=== PATIENT | female | born 1960 | race Caucasian/White ===

== ENCOUNTER 2017-08-25 05:35 | Inpatient (IN) | payer BC ==
[2017-08-25] MEDS ORDERED: ceFAZolin SODIUM 2 GM in DEXTROSE 5 % IN WATER 50 ML IV ONE ×2 (06:00)
[2017-08-25] MEDS ORDERED: TRANEXAMIC ACID 1,000 MG in NORMAL SALINE 100 ML IV ONE (06:00)
[2017-08-25] MEDS ORDERED: RINGER'S SOLUTION,LACTATED 1,000 ML IV PRN (06:00)
[2017-08-25] MEDS ORDERED: ceFAZolin SODIUM 1 GM VIAL IV PRN (06:00)
[2017-08-25] MEDS ORDERED: MORPHINE SULFATE 15 MG TABLET.SA PO PRN (06:00)
[2017-08-25] MEDS ORDERED: ROPIVACAINE HCL/PF 100 MG, KETOROLAC TROMETHAMINE 30 MG, EPINEPHrine 0.2 MG in NORMAL S... IJ PRN (06:00)
[2017-08-25] MEDS ORDERED: TRANEXAMIC ACID 1,000 MG in NORMAL SALINE 100 ML IV PRN (06:00)
[2017-08-25] MEDS ORDERED: MORPHINE SULFATE 15 MG TABLET.SA PO SCH (06:00)
[2017-08-25] MEDS ORDERED: RINGER'S SOLUTION,LACTATED 1,000 ML IV ONE ×3 (07:45→09:40)
[2017-08-25] MEDS ORDERED: FLU VACC QS2017-18(6MOS UP)/PF 60 MCG/0.5 ML SYRINGE IM ONE (09:00)
[2017-08-25] MEDS ORDERED: ZOLPIDEM TARTRATE 5 MG TABLET PO PRN (09:56)
[2017-08-25] MEDS ORDERED: DEXTROSE 5%-LACTATED RINGERS 1,000 ML IV PRN (09:56)
[2017-08-25] MEDS ORDERED: ONDANSETRON HCL/PF 2 MG/ML VIAL IV PRN (09:56)
[2017-08-25] MEDS ORDERED: HYDROmorphone HCL 2 MG/ML VIAL IV PRN (09:56)
[2017-08-25] MEDS ORDERED: MAGNESIUM HYDROXIDE 30 ML UDC PO PRN (09:56)
[2017-08-25] MEDS ORDERED: diphenhydrAMINE HCL 50 MG/ML VIAL IV PRN (09:56)
[2017-08-25] MEDS ORDERED: ACETAMINOPHEN 500 MG TABLET PO PRN (09:56)
[2017-08-25] MEDS ORDERED: MAG HYDROX/ALUMINUM HYD/SIMETH 30 ML UDC PO PRN (09:56)
[2017-08-25] MEDS ORDERED: PROMETHAZINE HCL 5 MG in DEXTROSE 5 % IN WATER 50 ML IV PRN ×2 (09:56)
--- NOTE | 2017-08-25 10:04 | OR ---
Operative Report - Dictated Report Narrative: Date: 08/25/2017 Preoperative diagnosis: Left Knee degenerative joint disease. Postoperative diagnosis: Left Knee degenerative joint disease. Procedure: Left Total knee arthroplasty. Surgeon: Ap Lopez M.D. Respiratory Coordinator: Bayron Gaines PA-C Anesthesia: Spinal with regional block and local periarticular joint injection. Complications: None Specimens: Bone for disposal. Estimated blood loss: Minimal. Tourniquet time: 80 Minutes at 350 millimeters of mercury. Retained implants: Depuy Attune size 5 narrow left lugged cemented posterior stabilized femoral component. Size 4 fixed-bearing cemented tibial platform. 5 by 5 millimeter posterior stabilized cross-linked tibial insert. 35 millimeter medialized patella button. Indications: Mrs. De La Cruz is a 56-year-old female who has had long-standing left knee pain and arthrosis. This patient was followed in my clinic for period of time with significant complaints of left knee pain consistent with arthritic changes. She had failed conservative measures including, but not limited to, activity modification, passage of time, medications, and other conservative measures. Patient wished to proceed with surgical treatment. The risks, benefits, and alternatives were discussed in clinic. The risks of , blood clots, bleeding, infection, nerve/tendon blood vessel/ injury, malposition of components, intraoperative fracture, postoperative limited range of motion, persistent pain, failure of components, and need for additional procedures. Patient wished to proceed consent was obtained after answering all questions. Procedure: After marking the correct extremity on the floor, the patient was taken to the operating room. A timeout was performed. IV antibiotics consisting of Ancef were administered prior to the procedure. A regional followed by spinal anesthetic was induced by anesthesia, per my request, on the operative table with all bony prominences well-padded. Huerta catheter was placed, and a bump was placed under the operative side buttock. SCDs and AILEEN hose were utilized on the nonoperative leg. A well-padded tourniquet was applied to the operative thigh. The operative leg was then pre-scrubbed with alcohol, prepped, and draped in a standard sterile fashion. After exsanguinating the extremity with an Esmarch bandage, the tourniquet was inflated. After marking out the anterior knee for standard incision centered over the patella, the skin was incised and dissected down to the joint retinaculum. The joint retinaculum was marked out as well as the horizontal axis of the patella, and a standard medial parapatellar arthrotomy was then made. The most proximal aspect of the quadriceps tendon and the patella tendon insertion were protected from release. A partial synovectomy was performed as well as a resection of the infrapatellar fat pad. The distal femoral fat pad proximal to the trochlea was also resected using cautery. The soft tissues were elevated off the medial aspect of the proximal tibia using a Queen elevator ensuring that we did not transect the medial collateral ligament. Upon initial evaluation range of motion was approximately 0 degrees to 120 degrees of flexion. There were signs of advanced arthrosis in the medial and patellofemoral joint spaces. There were large marginal osteophytes which were removed with a rongeur. The knee was hyperflexed and the patella was tucked laterally. Protecting the surrounding soft tissues with Homans, an entry drill was placed down the femoral canal using Whitesides line for guidance into the entry point. The intramedullary femoral alignment preston was utilized in order to cut the distal femur in 5 degrees of valgus resecting 10 millimeters of bone. Next the distal femur was sized to a size 5. A posterior referencing guide was utilized to place the distal femoral cutting block in 3 degrees of external rotation. This was pinned into place. The rotation was confirmed both visually and based on anatomic landmarks. The 4 in 1 cutting jig of the appropriate size was utilized in order to make all bony cuts. The angle wing was used to ensure no notching. Retractors were utilized in order to protect surrounding soft tissues. This cut did not result in any excessive notching. We then cut the box centered over the distal femur. This allowed for resection of the anterior and posterior cruciate ligaments. I then turned my attention to the preparation of the tibia. Using an extra medullary tibial alignment preston, 4 millimeters of bone was resected off the medial articular surface. This was made perpendicular to the mechanical axis of the joint with the alignment preston centered over the ankle mortise. The alignment preston was checked and was noted to be parallel to the mechanical axis, centered over the medial one third of the tibial tubercle, paralleling the anterior surface of the tibia. We then turned our attention to the remaining meniscus and soft tissues. These were removed while protecting the surrounding ligaments and soft tissues. The marginal osteophytes off the anterior, posterior, medial, lateral aspects of the femur and tibia were removed. The tibia was sized out to a size 4. Next the tibia was drilled and punched in an externally rotated position. Next the trial femur and a series of tibial inserts were utilized in order to allow for full extension and maximal flexion. It was found that a 5 millimeter insert gave the best range of motion and stability at multiple flexion points as well as at full extension there was less than 2 mm of gapping both medially and laterally. There is minimal anterior translation with the knee at 90 degrees of flexion and no signs of being able to dislocate the knee. The patella was then prepared. The initial thickness was 19 millimeters. This was reamed down to 10 millimeters parallel to the anterior surface of the patella. It was sized out to a size 35 medialized patella button. This was then drilled and trialed. Without any medial restraint the patella tracked appropriately and did not sublux or dislocate. At this point, it was felt these were the appropriate sized implants, and all trials were removed. The standard periarticular joint injection consisting of ropivacaine, Toradol, and epinephrine were injected into the periarticular joint tissues. The bony surfaces were thoroughly irrigated with a pulsatile- suction saline irrigation device. A bone plug from the prior resected anterior chamfer cut was placed into the drill hole at the distal femur. The bony surfaces were then dried in preparation for placement of the implants. The cement was vacuum mixed per the chestnut tanner's instructions. The cement was placed on the dry bony surfaces and posterior aspect of the implants. The implants were impacted into place, removing all extruded cement. At this point anesthesia administered tranexamic acid per protocol intravenously. The knee was placed in extension with axial loading with the trial insert while the cement cured. Once the cement cured, all remaining extruded cement was removed. The knee was placed through a range of motion with the trial insert to ensure appropriate range of motion and stability. Final range of motion was approximately 0 to 120 degrees. The knee was again thoroughly irrigated with pulsatile saline lavage. The final polyethylene insert was then impacted into place ensuring no retained soft tissues. The remaining periarticular joint injection was injected. A medium Hemovac drain was placed exiting superior laterally. The knee was then placed over a triangle and the arthrotomy was closed with interrupted #1 Vicryl after thoroughly irrigating the joint. The deep and subcutaneous tissues were closed with interrupted 0 and 3-0 Vicryl respectively. Skin was closed with a running subcutaneous 3-0 Monocryl and Prineo Dermabond dressing. 4 x 4's, Sof-Rol, and a full leg Alejandro wrap were applied. All sponge, needle, blade, and instrument counts were correct prior to closing the wounds. Postoperative condition: The patient was awoken and transferred to the postanesthesia care unit in stable condition. Plan is to be admitted to the inpatient medical/surgical floor postoperatively for 24 hours of IV antibiotics , physical therapy, occupational therapy, and medical comanagement. Patient will be weightbearing as tolerated with range of motion as tolerated. DVT prophylaxis will be with SCDs, AILEEN hose, and pharmacological anticoagulation. Anticipated hospital stay is approximately 2-4 days.
--- NOTE | 2017-08-25 10:11 | OR ---
Anesthesia Procedure Note - Anesthesia Procedure Note Date of Service: 08/25/17 Narrative: Vital Signs - Last Taken Temp 36.1 C L 08/25/17 10:05 Pulse 72 08/25/17 10:05 Resp 16 08/25/17 10:05 BP 107/46 08/25/17 10:05 Pulse Ox 97 08/25/17 10:05 O2 Oxygen Delivery Method Room Air 08/25/17 10:09 ANESTHESIA PROCEDURE NOTE Date of Procedure: 08/25/2017. Time of procedure: 744. Performed by: Easton Ford CRNA Econometrics Professor: None. Preprocedure diagnosis: Left total knee arthroplasty. Post procedure diagnosis: Same. Procedure: Left ultrasound guided femoral block for postoperative analgesia. Indications: The patient is a 56 -year-old female, who is having left total knee arthroplasty in need of a left femoral ultrasound-guided femoral nerve block for postoperative analgesia.. Findings: See below. Details of the procedure: The tissue over the intended target site was cleansed with ChloraPrep. 1 ml Lidocaine 1 % was infiltrated to the skin and subcutaneous tissue. Under sterile technique and ultrasound guidance a 21-gauge block needle was inserted anterior to the left femoral nerve . 30 mL's of 0.5% bupivacaine plus epinephrine 1 200,000 was injected after negative aspiration for blood. Spread of local anesthetic surroundind the femoral nerve was observed throughout the injection with ultrasound. The needle was removed intact. No complications were noted. The images were retained in the Hospital medical database . EBL: Minimal. Fluids: N/A. Specimen: N/A. Post procedure condition: The patient tolerated the procedure well. No complications were noted. Thank you for this consultation. Easton Ford CRNA
[2017-08-25] MEDS: KETOROLAC TROMETHAMINE 15 MG/ML VIAL IV SCH ×3 (13:21→22:00)
[2017-08-25] MEDS: ceFAZolin SODIUM 1 GM in DEXTROSE 5 % IN WATER 100 ML IV SCH ×4 (14:52→20:14)
[2017-08-25] MEDS: LORazepam 1 MG TABLET PO SCH (20:13)
[2017-08-25] MEDS: ROSUVASTATIN CALCIUM 10 MG TABLET PO SCH (20:14)
[2017-08-25] MEDS: SENNOSIDES/DOCUSATE SODIUM 1 TAB TABLET PO SCH (20:14)
[2017-08-25] MEDS: MORPHINE SULFATE 15 MG TABLET.SA PO SCH (20:14)
[2017-08-25] MEDS: MILNACIPRAN HCL 100 MG PO SCH (20:16)
[2017-08-26] MEDS: ceFAZolin SODIUM 1 GM in DEXTROSE 5 % IN WATER 100 ML IV SCH ×2 (01:55)
[2017-08-26] MEDS: oxyCODONE HCL/ACETAMINOPHEN 1 TAB TABLET PO PRN ×2 (02:12→11:52)
[2017-08-26] MEDS: KETOROLAC TROMETHAMINE 15 MG/ML VIAL IV SCH ×4 (04:06→23:14)
[2017-08-26 05:44] LABS: Hemoglobin 11.6 gm/dL (12.5-16.0); Mean Cell Volume 88.5 fl (78-100); Mean Corpuscular Hemoglobin 28.5 pg (27-31); Mean Corpuscular Hgb Conc 32.2 g/dl (32-36); Mean Platelet Volume 11.1 fl (6.0-9.5); Platelet Count 159 K/mm3 (150-450); Red Blood Count 4.07 M/mm3 (4.2-5.4); Red Cell Distribution Width 14.4 % (11.5-14.0); White Blood Count 8.6 K/mm3 (4.0-10.5)
[2017-08-26 06:11] LABS: Anion Gap 12.3 mmol/L (6.8-13.8); BUN/Creatinine Ratio 16.7 (9.0-21.6); Carbon Dioxide 25.8 mmol/L (24-32.6); Estimated Creat Clear 62.1; Potassium 4.1 mmol/L (3.4-4.6)
--- NOTE | 2017-08-26 08:07 | PN ---
Subjective - Date and Time Seen Date: 08/26/17 Time: 08:02 Subjective Narrative: Reports pain controlled. Reports mild sedation from pain medication. No nausea or vomiting. Mild lightheadedness. No chest pain or SOB. No other complaints. Objective Objective Narrative: Up in chair. Bandages C/D/I. N/V intact LLE. 5/5 PF/DF ankle. Calf supple. - Vitals Vitals: Last Vital Signs Temp 37 C 08/26/17 06:19 Pulse 80 08/26/17 06:46 Resp 20 08/26/17 06:46 BP 121/59 08/26/17 06:19 Pulse Ox 97 08/26/17 06:46 - Abnormal Lab Findings Abnormal Lab Findings: Abnormal Lab Results 08/26/17 08/26/17 Range/Units 05:15 05:15 RBC 4.07 L (4.2-5.4) M/mm3 Hgb 11.6 L (12.5-16.0) gm/dL Hct 36.0 L (37.0-47.0) % RDW 14.4 H (11.5-14.0) % MPV 11.1 H (6.0-9.5) fl Random Glucose 122 H (70-110) mg/dL - Exam Constitutional: Present: Alert, Oriented x3, Cooperative, No distress Cauti Physician Documentation - Urinary Catheter Management Urethral (Huerta) Date of Insertion: 08/25/17 Time of Insertion: 08:10 Assessment/Plan - Problems/Diagnosis (1) Sleep apnea Problem: Acute (2) Status post total left knee replacement Problem: Acute Narrative: Pain control, PT, anticoagulation, patient will need wheeled walker for 4-6 weeks post op for ambulation. (3) Acute blood loss anemia Problem: Acute Narrative: recheck labs in am (4) Hyperlipidemia Problem: Chronic Qualifiers: (5) Hypertension Problem: Chronic Qualifiers:
[2017-08-26] MEDS: ENOXAPARIN SODIUM 40 MG/0.4 ML SYRG SC SCH (08:09)
[2017-08-26] MEDS: PYRIDOXINE HCL (VITAMIN B6) 25 MG TABLET PO SCH (08:14)
[2017-08-26] MEDS: MORPHINE SULFATE 15 MG TABLET.SA PO SCH ×2 (08:14→21:06)
[2017-08-26] MEDS: HYDROCHLOROTHIAZIDE 12.5 MG CAPSULE PO SCH (08:14)
[2017-08-26] MEDS: CYANOCOBALAMIN 1,000 MCG TABLET PO SCH (08:14)
[2017-08-26] MEDS: [UNRECOGNIZED DRUG - OTHER] PO SCH (08:15)
[2017-08-26] MEDS: METOPROLOL SUCCINATE 100 MG TABLET.SA PO SCH (08:15)
[2017-08-26] MEDS: PROPRANOLOL HCL 60 MG CAPSULE.SA PO SCH (08:16)
[2017-08-26] MEDS ORDERED: FLU VACC QS2017-18(6MOS UP)/PF 60 MCG/0.5 ML SYRINGE IM ONE (10:15)
--- NOTE | 2017-08-26 11:59 | PN ---
Subjective - Date and Time Seen Date: 08/26/17 Time: 07:50 Subjective Narrative: Weak on her leg this morning. Very little pain. Feels great. Objective - Review of Systems Generalized/Overall Review: Reports: No Symptoms Reported EENTM: Reports: No Symptoms Reported Respiratory: Reports: No Symptoms Reported Cardiac: Reports: No Symptoms Reported Abdominal: Reports: No Symptoms Reported Genitourinary Symptoms: Reports: No Symptoms Reported Musculoskeletal Complaints: Reports: Other - weak on leg Neurological: Reports: No Symptoms Reported Skin: Reports: No Symptoms Reported Endocrine: Reports: No Symptoms Reported Misc: All systems neg except as marked - Vitals Vitals: Last Vital Signs Selected Entries 08/26/17 08/26/17 06:19 06:46 Temperature 37 C Temperature Oral Source Pulse Rate 80 80 Pulse Rhythm Regular Pulse Strength Normal Respiratory 18 20 Rate Respiratory Normal Depth Respiratory Normal Effort Non-Labored Respiratory Normal Pattern Blood Pressure 121/59 Blood Pressure Supine Position O2 Sat by Pulse 95 97 Oximetry Oxygen Delivery Room Air Method - Abnormal Lab Findings Abnormal Lab Findings: Abnormal Lab Results 08/26/17 08/26/17 Range/Units 05:15 05:15 RBC 4.07 L (4.2-5.4) M/mm3 Hgb 11.6 L (12.5-16.0) gm/dL Hct 36.0 L (37.0-47.0) % RDW 14.4 H (11.5-14.0) % MPV 11.1 H (6.0-9.5) fl Random Glucose 122 H (70-110) mg/dL - Exam Constitutional: Present: Alert, Oriented x3, Cooperative, Well developed, No distress, Morbidly obese ENT Exam: Present: normal ENT inspection, hearing grossly normal Neck: Present: normal inspection Respiratory: Present: lungs clear, no respiratory distress Cardiovascular/Chest: Present: regular rate, rhythm, no murmur Abdomen: Present: Normal bowel sounds, soft, nontender, nondistended, no rebound tenderness, obese Extremity: Present: normal inspection. Absent: pedal edema Skin Exam: Present: normal color, warm/dry, no cyanosis Neurologic: Present: alert, oriented x 3 Appearance: Present: appropriate appearance, appropriate insight, neat, no memory impairment Eye contact: Present: cooperative, good eye contact, normal speech Thoughts: Present: normal thought pattern Cauti Physician Documentation - Urinary Catheter Management Urethral (Huerta) Date of Insertion: 08/25/17 Time of Insertion: 08:10 Date of Removal: 08/26/17 Time of Removal: 08:05 Assessment/Plan Plan Narrative: Follow protocol - Problems/Diagnosis (1) Sleep apnea Problem: Acute (2) Hyperlipidemia Problem: Chronic Qualifiers: (3) Hypertension Problem: Chronic Qualifiers: (4) Status post total left knee replacement Problem: Acute
[2017-08-26] MEDS: ROSUVASTATIN CALCIUM 10 MG TABLET PO SCH (21:06)
[2017-08-26] MEDS: SENNOSIDES/DOCUSATE SODIUM 1 TAB TABLET PO SCH (21:06)
[2017-08-26] MEDS: MILNACIPRAN HCL 100 MG PO SCH (21:08)
[2017-08-26] MEDS: LORazepam 1 MG TABLET PO SCH (21:29)
[2017-08-27] MEDS: KETOROLAC TROMETHAMINE 15 MG/ML VIAL IV SCH (05:10)
[2017-08-27 06:09] LABS: Hematocrit 34.3 % (37.0-47.0); Mean Cell Volume 88.4 fl (78-100); Mean Corpuscular Hemoglobin 28.4 pg (27-31); Mean Corpuscular Hgb Conc 32.1 g/dl (32-36); Platelet Count 150 K/mm3 (150-450); Red Blood Count 3.88 M/mm3 (4.2-5.4); Red Cell Distribution Width 14.2 % (11.5-14.0); White Blood Count 10.1 K/mm3 (4.0-10.5)
[2017-08-27 06:41] LABS: Anion Gap 10.4 mmol/L (6.8-13.8); BUN/Creatinine Ratio 12.9 (9.0-21.6); Calcium * 8.3 mg/dL (7.9-10.9); Carbon Dioxide 27.5 mmol/L (24-32.6); Estimated Creat Clear 60.1; Potassium 3.9 mmol/L (3.4-4.6)
[2017-08-27] MEDS: oxyCODONE HCL/ACETAMINOPHEN 1 TAB TABLET PO PRN ×3 (07:10→22:38)
[2017-08-27] MEDS: ENOXAPARIN SODIUM 40 MG/0.4 ML SYRG SC SCH (08:55)
[2017-08-27] MEDS: HYDROCHLOROTHIAZIDE 12.5 MG CAPSULE PO SCH (09:53)
[2017-08-27] MEDS: PROPRANOLOL HCL 60 MG CAPSULE.SA PO SCH (09:53)
[2017-08-27] MEDS: PYRIDOXINE HCL (VITAMIN B6) 25 MG TABLET PO SCH (10:06)
[2017-08-27] MEDS: CYANOCOBALAMIN 1,000 MCG TABLET PO SCH (10:06)
[2017-08-27] MEDS: [UNRECOGNIZED DRUG - OTHER] PO SCH (10:06)
[2017-08-27] MEDS: METOPROLOL SUCCINATE 100 MG TABLET.SA PO SCH (10:12)
[2017-08-27] MEDS: MORPHINE SULFATE 15 MG TABLET.SA PO SCH ×2 (10:12→20:40)
--- NOTE | 2017-08-27 13:01 | PN ---
Subjective - Date and Time Seen Date: 08/27/17 Time: 12:59 Subjective Narrative: Subjective: Reports no concerns. Was able to walk in the [place] with therapy. Pain is well-controlled. Voiding without any complications. Tolerating by mouth intake. Denies any nausea or vomiting. Denies calf pain. Slept well. Physical exam: Alert and oriented to person, place and time Left lower Extremity: Palpable dorsalis pedis pulse. Sensation grossly intact to light touch. Dressings clean and dry. Able to flex and extend ankle and toes. No excessive drainage. Calf and thigh are soft and nontender. Assessment: Postop day 2 status post left total knee arthroplasty. Plan: Continue with physical and occupational therapy weightbearing as tolerated. Continue with anticoagulation. Pain control with goal to rely on oral medications. Continue bowel regimen. Will need 6 weeks with walker or assitive device to protect joint while ambulating during the recovery process. Discharge planning. [facility] will plan to transfer. Objective - Vitals Vitals: Last Vital Signs Temp 35.8 C L 08/27/17 09:58 Pulse 78 08/27/17 10:12 Resp 20 08/27/17 09:58 BP 98/51 08/27/17 10:12 Pulse Ox 97 08/27/17 09:58 - Abnormal Lab Findings Abnormal Lab Findings: Abnormal Lab Results 08/27/17 08/27/17 Range/Units 05:45 05:45 RBC 3.88 L (4.2-5.4) M/mm3 Hgb 11.0 L (12.5-16.0) gm/dL Hct 34.3 L (37.0-47.0) % RDW 14.2 H (11.5-14.0) % MPV 11.0 H (6.0-9.5) fl Random Glucose 114 H (70-110) mg/dL Cauti Physician Documentation - Urinary Catheter Management Urethral (Huerta) Date of Insertion: 08/25/17 Time of Insertion: 08:10 Date of Removal: 08/26/17 Time of Removal: 08:05 Assessment/Plan - Problems/Diagnosis (1) Status post total left knee replacement Problem: Acute (2) Acute blood loss anemia Problem: Acute (3) Gastritis Problem: Chronic (4) Hiatal hernia Problem: Chronic (5) Hyperlipidemia Problem: Chronic Qualifiers: (6) Hypertension Problem: Chronic Qualifiers:
[2017-08-27] MEDS: LORazepam 1 MG TABLET PO SCH (20:39)
[2017-08-27] MEDS: SENNOSIDES/DOCUSATE SODIUM 1 TAB TABLET PO SCH (20:41)
[2017-08-27] MEDS: ROSUVASTATIN CALCIUM 10 MG TABLET PO SCH (20:41)
[2017-08-27] MEDS: MILNACIPRAN HCL 100 MG PO SCH (20:41)
[2017-08-28] MEDS: oxyCODONE HCL/ACETAMINOPHEN 1 TAB TABLET PO PRN (06:51)
--- NOTE | 2017-08-28 07:48 | DS ---
(1) Status post total left knee replacement Problem: Acute (2) Acute blood loss anemia Problem: Acute (3) Gastritis Problem: Chronic (4) Hiatal hernia Problem: Chronic (5) Hyperlipidemia Problem: Chronic Qualifiers: (6) Hypertension Problem: Chronic Qualifiers: Description of Stay: Mrs. De La Cruz was admitted to the floor after undergoing left total knee arthroplasty. Tolerated this well. Was admitted to the floor postoperatively for 24 hours of IV antibiotics, pain control, medical comanagement, and occupational and physical therapy. OT and PT were consulted to assist with activities of daily living and ambulation. Was made weightbearing as tolerated with range of motion as tolerated. Pain was initially controlled with IV regimen. This was transitioned to oral once tolerating a by mouth intake. Was resumed on home diet and medications. Had a Huerta catheter inserted and the operating room which was discontinued on postoperative day 1. A drain was placed intraoperatively into the knee which was discontinued on postoperative day 1. Lovenox SCD and AILEEN hose were utilized for DVT prophylaxis. Vital signs remained stable to the hospital course. Serial labs were obtained which showed a final hemoglobin of 11.0 grams. BMP was reviewed and was stable. Physical examination throughout the hospital course showed an extremity that had sensation that was intact to light touch, palpable pulses, a benign wound, motor intact to the toes, ankle, and knee. Knee range of motion was approximately 0 degrees to 70 degrees. She was somewhat slow to progress with therapy and had limited help at home and thus she is electing to go to [facility] for continuing physical therapy at a skilled level. She is being transferred today. Instructions: Continue with weightbearing as tolerated and range of motion as tolerated. It is okay to shower and get the wound wet as long as there is no drainage from the wound. Do not bathe or soak the wound. If there is any drainage from the wound keep the wound clean and dry and cover with dry gauze and tape. Change every 2-3 days as needed if there is any drainage. Cover wound while showering if there is any drainage. Continue with physical therapy. Resume home diet. Report any fever over 101.5 Fahrenheit, uncontrolled pain, increased drainage, foul odor of drainage, new or increased calf pain or shortness of breath, or any other significant complaints. A 325mg dialy aspirin will be started after finishing anticoagulation if not allergic. Continue with AILEEN hose on the operative extremity until instructed otherwise. No driving until instructed otherwise. Follow up in approximately 10-14 days. She is instructed to use the ice machine as much as she can tolerate or elects to use it. Procedures Performed: see notes below List Procedures: Left total knee arthroplasty Discharge Disposition: Other HealthCare facility - [facility] Disposition: Other health care facility Condition: Good Discharge Activity: Activity as tolerated, Weight bearing Discharge Diet: General/regular food Long Term Therapy: Physicial Therapy Referrals: Eric Ricardo MD [Primary Care Provider] - Additional Patient Instructions (free text): Follow-up in the office with Dr. Lopez on 09/09/17@9:45am. Prescriptions (Any new or edited meds): Enoxaparin Sodium [Lovenox] 40 mg SC Q24H #7 disp.syrin Morphine Sulfate [Ms Contin] 15 mg PO Q12H #20 tablet.sa oxyCODONE HCL/ACETAMINOPHEN [Percocet 5 MG/325 MG] 2 tab PO Q4H PRN #90 tablet PRN Reason: Moderate Pain Complete Home Medications List: Complete Home Medication List: Cyanocobalamin (Vitamin B-12) [B-12] 1,000 mcg PO DAILY 11/23/14 Hydrochlorothiazide [Hydrodiuril] 12.5 mg PO DAILY 11/23/14 Milnacipran HCl [Savella] 100 mg PO HS 11/23/14 Atorvastatin Calcium [Lipitor] 20 mg PO QAM 06/12/16 Lorazepam [Ativan] 2 mg PO HS 06/12/16 Metoprolol Succinate [Toprol Xl] 100 mg PO QAM 06/12/16 Propranolol HCl [Inderal LA] 60 mg PO DAILY 06/12/16 Pyridoxine HCl (Vitamin B6) [Vitamin B-6] 100 mg PO DAILY 06/12/16 Thyrotian 150 Mcg 1 cap PO DAILY 08/05/17 Enoxaparin Sodium [Lovenox] 40 mg SC Q24H #7 disp.syrin 08/28/17 Morphine Sulfate [Ms Contin] 15 mg PO Q12H #20 tablet.sa 08/28/17 Sennosides/Docusate Sodium [Senokot-S] 2 tab PO HS tablet 08/28/17 oxyCODONE HCL/ACETAMINOPHEN [Percocet 5 MG/325 MG] 2 tab PO Q4H PRN #90 tablet 08/28/17 Amb Orders for Discharge: PT Evaluation and Treatment Facility: [facility], Location: Rehabilitation Services
[2017-08-28] MEDS: ENOXAPARIN SODIUM 40 MG/0.4 ML SYRG SC SCH (09:56)
[2017-08-28] MEDS: MORPHINE SULFATE 15 MG TABLET.SA PO SCH (09:56)
[2017-08-28] MEDS: CYANOCOBALAMIN 1,000 MCG TABLET PO SCH (09:57)
[2017-08-28] MEDS: PYRIDOXINE HCL (VITAMIN B6) 25 MG TABLET PO SCH (09:57)
[2017-08-28] MEDS: [UNRECOGNIZED DRUG - OTHER] PO SCH (09:57)
[2017-08-28] MEDS: METOPROLOL SUCCINATE 100 MG TABLET.SA PO SCH (09:57)
--- NOTE | 2017-08-28 09:58 | PN ---
Subjective - Date and Time Seen Date: 08/28/17 Time: 07:15 Subjective Narrative: Got behind on taking her pain meds last night. Better this morning. Going to the [facility] Back unit at [place] for recovery today. Objective - Review of Systems Generalized/Overall Review: Reports: No Symptoms Reported EENTM: Reports: No Symptoms Reported Respiratory: Reports: No Symptoms Reported Cardiac: Reports: No Symptoms Reported Abdominal: Reports: No Symptoms Reported Genitourinary Symptoms: Reports: No Symptoms Reported Musculoskeletal Complaints: Reports: Other - leg still weak Neurological: Reports: No Symptoms Reported Skin: Reports: No Symptoms Reported Endocrine: Reports: No Symptoms Reported Misc: All systems neg except as marked - Vitals Vitals: Last Vital Signs Selected Entries 08/28/17 06:00 Temperature 36.5 C Temperature Temporal Artery Source Scan Pulse Rate 89 Respiratory 18 Rate Respiratory Normal Depth Blood Pressure 116/63 Blood Pressure Supine Position O2 Sat by Pulse 100 Oximetry Oxygen Delivery Room Air Method - Exam Constitutional: Present: Alert, Oriented x3, Cooperative ENT Exam: Present: normal ENT inspection, hearing grossly normal Neck: Present: normal inspection Respiratory: Present: lungs clear, no respiratory distress Cardiovascular/Chest: Present: regular rate, rhythm, no murmur Abdomen: Present: Normal bowel sounds, soft, nontender, nondistended, no rebound tenderness, no hepatospenomegaly, obese Extremity: Present: normal inspection Skin Exam: Present: normal color, warm/dry, no cyanosis Neurologic: Present: alert, oriented x 3 Appearance: Present: appropriate appearance, appropriate insight, neat, no memory impairment Eye contact: Present: cooperative, good eye contact, normal speech Thoughts: Present: normal thought pattern Cauti Physician Documentation - Urinary Catheter Management Urethral (Huerta) Date of Insertion: 08/25/17 Time of Insertion: 08:10 Date of Removal: 08/26/17 Time of Removal: 08:05 Assessment/Plan Plan Narrative: Satisfactory post op course for discharge today. - Problems/Diagnosis (1) Sleep apnea Problem: Acute (2) Hyperlipidemia Problem: Chronic Qualifiers: (3) Hypertension Problem: Chronic Qualifiers: (4) Status post total left knee replacement Problem: Acute
[2017-08-28 11:14] VITALS: BP 99/47
== END 2017-08-28 11:45 | DRG 470 ==
LOC: MS 05:35
PROVIDERS: ADMIT Orthopaedic Surgery; ATTEND Orthopaedic Surgery
PROC: 0SRD0J9 Replacement of Left Knee Joint with Synthetic Substitute, Cemented, Open Approach (ICD-10-PCS; principal; 2017-08-25 08:00)
DX: M17.11 Unilateral primary osteoarthritis, right knee (principal); D62 Acute posthemorrhagic anemia; I10 Essential (primary) hypertension; J30.1 Allergic rhinitis due to pollen; E55.9 Vitamin D deficiency, unspecified; E78.5 Hyperlipidemia, unspecified; K29.70 Gastritis, unspecified, without bleeding; Z23 Encounter for immunization
CPT/HCPCS: 27447; 36415; 73560; 80048; 85027; 90686; 94660; 97110; 97116; 97161; 97166; 97535; G0008

== ENCOUNTER 2017-09-12 11:08 | Emergency (ER) | payer BC ==
[2017-09-12 11:47] LABS: Hematocrit 38.1 % (37.0-47.0); Hemoglobin 12.2 gm/dL (12.5-16.0); Mean Cell Volume 87.6 fl (78-100); Mean Platelet Volume 10.2 fl (6.0-9.5); Neutrophil # 5.2 K/mm3 (1.3-6.0); Neutrophil % 64.1 % (42-75.0); Platelet Count 367 K/mm3 (150-450); Red Blood Count 4.35 M/mm3 (4.2-5.4); Red Cell Distribution Width 14.5 % (11.5-14.0); White Blood Count 8.1 K/mm3 (4.0-10.5)
--- NOTE | 2017-09-12 11:50 | ERNOTE ---
Dizziness ER Record Time Seen by Provider: 09/12/17 11:11 Source: patient Exam Limitations: no limitations Immunizations: IMMUNIZATION HX Immunizations Up to Date Yes History of Influenza Vaccine Yes Hx Pneumococcal Vaccination No Allergies/Adverse Reactions: Allergies Allergy/AdvReac Type Severity Reaction Status Date / Time prednisone AdvReac Intermediate altered Verified 09/12/17 11:20 mental status aspirin AdvReac Mild Nausea Verified 09/12/17 11:20 NSAIDS (Non-Steroidal AdvReac Mild Nausea Verified 09/12/17 11:20 Anti-Inflamma dairy Allergy Intermediate trouble Uncoded 08/05/17 12:36 breathing, itching, rash, upset stomach Home Medications: HOME MEDICATIONS Cyanocobalamin (Vitamin B-12) [B-12] 1,000 mcg PO DAILY 11/23/14 [Last Taken Unknown] Hydrochlorothiazide [Hydrodiuril] 12.5 mg PO DAILY 11/23/14 [Last Taken Unknown] Milnacipran HCl [Savella] 100 mg PO HS 11/23/14 [Last Taken Unknown] Atorvastatin Calcium [Lipitor] 20 mg PO QAM 06/12/16 [Last Taken Unknown] Lorazepam [Ativan] 2 mg PO HS 06/12/16 [Last Taken Unknown] Metoprolol Succinate [Toprol Xl] 100 mg PO QAM 06/12/16 [Last Taken Unknown] Propranolol HCl [Inderal LA] 60 mg PO DAILY 06/12/16 [Last Taken Unknown] Pyridoxine HCl (Vitamin B6) [Vitamin B-6] 100 mg PO DAILY 06/12/16 [Last Taken Unknown] Thyrotian 150 Mcg 1 cap PO DAILY 08/05/17 [Last Taken Unknown] Clopidogrel Bisulfate [Plavix] 75 mg PO DAILY 09/12/17 [Last Taken Unknown] Dicyclomine HCl [Bentyl] 20 mg PO DAILY PRN 09/12/17 [Last Taken Unknown] Ergocalciferol (Vitamin D2) [Vitamin D2] 50,000 units PO DAILY 09/12/17 [Last Taken Unknown] L.acidoph,Paracasei, B.lactis [Probiotic] 1 each PO DAILY 09/12/17 [Last Taken Unknown] oxyCODONE HCL/ACETAMINOPHEN [Percocet 5 MG/325 MG] 1 - 2 tab PO Q4H PRN [Last Taken Unknown] - History of Present Illness Narrative: Patient has not felt well since yesterday morning, has vague complaints of dizziness, felt fatigued, generalized weakness today at therapy her dizziness got acutely worse. She had her left knee replaced on 08/25, was on lovenox for 10days, now is on plavix. She denies any shortness of breath but 'can't get a deep breath in' Date (Duration): 09/11/17 Timing and Duration: gradual onset, still present Noted on awakening:: Yes Severity: max: moderate Severity: currently: mild Associated Symptoms: Present: nausea. Absent: hearing loss, ringing/roaring in ear, ear pain, vomiting, headache, weakness, numbness, sweating, light headedness Sense of movement: Present: spinning, vague Decreased ability to stand/walk:: Present: off balance Usually:: Present: uses a cane/walker Modifying Factors - (Improves): Reports: other - holding still, resting Modifying Factors - (Worsens): Reports: changing position, movement of head Prior Treament: Reports: recently seen. Denies: similar symptoms before Review of Systems - Review of Systems Constitutional: Present: malaise. Absent: fever EYE: Absent: vision changes ENT: Absent: nose congestion, sore throat Respiratory: Present: See HPI. Absent: shortness of breath Cardiology: Absent: chest pain, palpitations Gastrointestinal/Abdominal: Present: nausea. Absent: vomiting, diarrhea, abdominal pain Genitourinary: Present: no symptoms reported Musculoskeletal: Present: other - S/P left knee replacement Neurological: Absent: weakness, numbness Endocrine: Present: no symptoms reported - Patient's Past Medical History Patient History - Medical: Anxiety, Fibromyalgia Patient History - Cardiac/Respiratory: Hypertension, Hyperlipidemia Patient History - Cancer: No Hx of Cancer Patient History - Surgical Procedures: Cholecystectomy, Hysterectomy, Total Knee Replacement, T & A Patient History - Other: None LMP (females 10-50): Menopausal - Family History Father Family History - Medical: , No pertinent hx Family History - Cardiac/Respiratory: Hypertension, Myocardial Infarction Mother Family History - Cardiac/Respiratory: CVA/Stroke Sister Family History - Medical: Diabetes Type 2 Family History - Cardiac/Respiratory: No pertinent hx Grandmother-Paternal Family History - Medical: , Diabetes Type 2 Family History - Cardiac/Respiratory: History Unknown Grandfather-Maternal Family History - Medical: , No pertinent hx Family History - Cardiac/Respiratory: Coronary Heart Disease - Social History Living Situations: home Abuse History: No History of abuse Psych History: Hx of Anxiety, Current tx/ever been on anti-depressants or anti- anxiety meds Smoking Status: Never smoker Alcohol Use: none Drug Use: none - Immunizations Immunizations Up to Date: Yes Hx Pneumococcal Vaccination: No History of Influenza Vaccine: Yes Physical Exam - Physical Exam General Appearance: Present: wd/wn, alert, no apparent distress Head Exam: Present: normal inspection, no evidence of injury Eye Exam: Normal inspection: bilateral, PERRL: bilateral, EOMI: bilateral Ears, Nose, Throat: Present: normal ENT inspection, normal pharynx Neck: Present: normal inspection. 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 - Vital Signs Patient's Vital Signs:: I have reviewed the patient's vital signs. Vital Signs: Vital Signs 09/12/17 11:10 Temperature 37.1 C Pulse Rate 96 Respiratory 17 Rate Blood Pressure 158/102 O2 Sat by Pulse 100 Oximetry - EKG EKG: NSR, unchanged from - 08/15/17, other - low voltage, no acute changes EKG read: Interp. by me - Progress/Reassessment Chief Complaint: Dizziness Progress Note-Subjective: 09/12/17 11:30 when pushing herself up in bed patient becomes short of breath O2sats 90% 09/12/17 12:17 discussed lab results, will order CTA as d-dimer elevated 09/12/17 13:[address] with radiologist: no PE 09/12/17 13:25 discussed result with patient, she is feeling better,was able to use commode without problems or significant dizziness 09/12/17 13:29 call to PT, will fax order for evaluation for vertigo if patient still has symptoms at the time of her next visit for her knee after the weekend 09/12/17 13:[address] Esteevs (ortho) of patient visit to ER as she had recent knee surgery Departure Clinical Impression: Vertigo - Departure Disposition: Home self-care Condition: Good Instructions: Vertigo, [id number] Additional Instructions: try to move slowly if you are still dizzy at your PT appointment on Friday they will evaluate you at that time Referrals: Eric Ricardo MD [Primary Care Provider] -
[2017-09-12 12:03] LABS: Albumin * 3.5 gm/dl (3.4-5.0); Anion Gap 14.5 mmol/L (6.8-13.8); BUN/Creatinine Ratio 18.8 (9.0-21.6); Bilirubin, Total 0.5 mg/dL (0.0-1.1); Ca. Corrected For Albumin 9.3 mg/dL (8.4-10.2); Calcium * 9.2 mg/dL (7.9-10.9); Carbon Dioxide 26.8 mmol/L (24-32.6); Potassium 4.3 mmol/L (3.4-4.6); TSH * 1.366 uIU/mL (0.358-3.74); Total Protein 7.5 gm/dL (6.2-8.2)
[2017-09-12 13:10] VITALS: BP 151/91
== END 2017-09-12 13:34 | disposition home or self-care (01) ==
LOC: ER 11:08
DX: R42 Dizziness and giddiness (principal); M79.7 Fibromyalgia; I10 Essential (primary) hypertension; E78.5 Hyperlipidemia, unspecified; F41.9 Anxiety disorder, unspecified